=== PATIENT | male | born 1985 | race African-American/Black ===

== ENCOUNTER 2020-12-11 12:33 | Inpatient (IN) | payer OTHER ==
[2020-12-11] MEDS ORDERED: CEFAZOLIN 1 GM VIAL ONE (12:45)
[2020-12-11] MEDS ORDERED: Morphine 4 MG/ML VIAL ONE (12:45)
[2020-12-11] MEDS ORDERED: TETANUS AND DIPHTHERIA TOX/PF 0.5 ML DISP.SYRIN ONE (12:45)
[2020-12-11] MEDS ORDERED: Ketamine 50 MG/ML (10ML VIAL) ONE (12:46)
[2020-12-11] MEDS ORDERED: Dextrose 50% Abboject 50 ML SYRINGE SLOW IVP PRN (13:05)
[2020-12-11] MEDS ORDERED: Dextrose 5% in Water 1,000 ML IV PRN (13:05)
[2020-12-11] MEDS ORDERED: Ondansetron PF 4 MG/2 ML Vial IVP PRN (13:05)
[2020-12-11] MEDS ORDERED: hydrALAZINE 20 MG/ML VIAL SLOW IVP PRN (13:05)
[2020-12-11] MEDS ORDERED: Morphine 4 MG/ML VIAL SLOW IVP PRN (13:05)
[2020-12-11] MEDS ORDERED: Fentanyl 250 MCG/5 ML VIAL ONE (13:06)
[2020-12-11] MEDS ORDERED: Midazolam HCl 2 mg/2 ml Vial ONE (13:06)
[2020-12-11] MEDS ORDERED: Cyclobenzaprine 10 MG TAB PO PRN (13:08)
[2020-12-11 13:17] LABS: Lactic Acid 1.8 mmol/L (0.5-2.2)
[2020-12-11 13:18] LABS: #Basophils 0.1 thou/uL (0.0-0.2); #Lymphocytes 4.1 thou/uL (1.20-3.40); #Monocytes 1.2 thou/uL (0.11-0.59); #Neutrophils 12.3 thou/uL (1.40-6.50); %Basophils 0.6 % (0.0-1.0); %Eosinophils 0.2 % (0.0-10.0); %Lymphocytes 23.1 % (21.0-51.0); %Monocytes 6.8 % (0.0-10.0); %Neutrophils 69.2 % (42.0-75.0); Mean Corpuscular HGB CONC 33.1 g/dL (32.0-36.0); Mean Corpuscular Hemoglobin 29.3 pg (27.0-31.0); Mean Corpuscular Volume 88.4 fL (78.0-98.0); Platelet Count 236 thou/uL (130-400); RBC Distribution Width 13.1 % (11.5-14.5); Red Blood Cell (RBC) Count 5.13 mill/uL (4.70-6.10); White Blood Cell (WBC) Count 17.8 thou/uL (4.8-10.8)
[2020-12-11 13:22] LABS: Prothrombin Time 13.4 sec (12.0-14.7)
[2020-12-11 13:23] LABS: ALT (SGPT) 21 U/L (8-55); AST (SGOT) 41 U/L (5-34); Albumin 4.1 g/dL (3.5-5.0); Alcohol Less than 10 mg/dL (Less than 10); Alkaline Phosphatase 86 U/L (40-110); Anion Gap 13 mmol/L (10-20); BUN (Urea Nitrogen) 11 mg/dL (8.9-20.6); Bilirubin, Total 0.8 mg/dL (0.2-1.2); CK (CPK) 2103 U/L (30-200); Calc. Creatinine Clearance 0 mL/min (70-130); Calcium 9.2 mg/dL (7.8-10.44); Carbon Dioxide 22 mmol/L (22-29); Chloride 104 mmol/L (98-107); Globulin 3.9 g/dL (2.4-3.5); Glucose 140 mg/dL (70-105); Magnesium 1.9 mg/dL (1.6-2.6); Potassium 3.4 mmol/L (3.5-5.1); Sodium 136 mmol/L (136-145)
[2020-12-11 13:28] LABS: Phosphorus 1.6 mg/dL (2.3-4.7)
[2020-12-11] MEDS ORDERED: Protamine Sulfate 50 MG/5 ML VIAL ONE (13:28)
[2020-12-11] MEDS ORDERED: Heparin 5,000 UNITS/ML VIAL ONE (13:28)
[2020-12-11] MEDS ORDERED: Magnesium 2 GM/50 ML 2 GM in Premix Bag 1 BAG IVPB SCH (13:45)
[2020-12-11] MEDS ORDERED: Potassium Phosphate 30 MMOL in Sodium Chloride 0.9% 250 ML 250 ML IVPB SCH (13:45)
[2020-12-11] MEDS ORDERED: PROPOFOL 200 MG/20 ML VIAL ONE (13:51)
[2020-12-11] MEDS ORDERED: Rocuronium Bromide 10 MG/ML (10ML VIAL) ONE (13:51)
[2020-12-11] MEDS ORDERED: Lidocaine 1% PF 5 ML VIAL ONE (13:51)
[2020-12-11] MEDS ORDERED: Ondansetron PF 4 MG/2 ML Vial ONE (13:51)
[2020-12-11] MEDS ORDERED: Dexamethasone 20 MG/5 ML VIAL ONE (13:51)
[2020-12-11] MEDS ORDERED: Glycopyrrolate 0.2 MG/ML 5 ML SYRINGE ONE (13:51)
[2020-12-11] MEDS ORDERED: Succinylcholine 200 MG/10 ml SYRINGE FS ONE (13:51)
[2020-12-11] MEDS ORDERED: Ketorolac Tromethamine 30 MG/ML VIAL IVP PRN (15:01)
[2020-12-11] MEDS ORDERED: Ondansetron HCl/PF 4 MG/2 ML Vial IVP PRN (15:01)
[2020-12-11] MEDS ORDERED: Promethazine HCl 25 MG/ML VIAL IM PRN (15:01)
[2020-12-11] MEDS ORDERED: Promethazine HCl 25 MG/ML VIAL IVPB PRN (15:01)
[2020-12-11] MEDS ORDERED: HYDROmorphone 2 MG/ML VIAL SLOW IVP PRN (15:01)
[2020-12-11] MEDS ORDERED: SUGAMMADEX SODIUM 200 MG/2 ML VIAL ONE (15:53)
[2020-12-11] MEDS ORDERED: Fentanyl 100 MCG/2 ML VIAL ONE ×2 (16:13→16:35)
[2020-12-11] MEDS: Sodium Chloride 0.9% 1,000 ML IV SCH (17:41)
[2020-12-11] MEDS: Acetaminophen 500 MG TAB PO SCH ×2 (18:41→20:58)
[2020-12-11] MEDS: traMADol HCl 50 MG TAB PO SCH ×2 (18:42→20:58)
[2020-12-11] MEDS: Gabapentin 300 MG CAP PO SCH ×2 (18:42→20:58)
[2020-12-11] MEDS: Senokot S 8.6-50 MG TAB PO SCH (20:57)
[2020-12-11] MEDS: Famotidine 20 MG TAB PO SCH (20:58)
[2020-12-11 22:10] LABS: Amphetamine Detected (NotDetected); Barbiturates Screen Not Detected (NotDetected); Benzodiazepine Screen Not Detected (NotDetected); Cocaine Metabolite Screen Detected (NotDetected); Methadone Not Detected (NotDetected); Methamphetamine Detected (NotDetected); Opiate Screen Detected (NotDetected); Oxycodone Screen Not Detected (NotDetected); Phencyclidine (PCP) Not Detected (NotDetected); THC/Cannabinoid Screen Detected (NotDetected); Tricyclic Screen Not Detected (NotDetected)
[2020-12-11 22:56] VITALS: BMI 25.2
[2020-12-12] MEDS: traMADol HCl 50 MG TAB PO SCH ×4 (01:55→18:21)
[2020-12-12] MEDS: Acetaminophen 500 MG TAB PO SCH ×4 (01:55→18:21)
[2020-12-12] MEDS: Sodium Chloride 0.9% 1,000 ML IV SCH ×4 (02:00→23:53)
[2020-12-12 04:38] LABS: #Basophils 0.1 thou/uL (0.0-0.2); #Lymphocytes 3.2 thou/uL (1.20-3.40); #Monocytes 1.3 thou/uL (0.11-0.59); #Neutrophils 9.3 thou/uL (1.40-6.50); %Basophils 0.4 % (0.0-1.0); %Eosinophils 0.1 % (0.0-10.0); %Monocytes 9.5 % (0.0-10.0); Hemoglobin 12.5 g/dL (14.0-18.0); Mean Corpuscular HGB CONC 33.1 g/dL (32.0-36.0); Mean Corpuscular Hemoglobin 29.5 pg (27.0-31.0); Mean Corpuscular Volume 89.1 fL (78.0-98.0); Mean Platelet Volume 8.6 fL (7.4-10.4); Platelet Count 193 thou/uL (130-400); RBC Distribution Width 12.9 % (11.5-14.5); Red Blood Cell (RBC) Count 4.23 mill/uL (4.70-6.10); White Blood Cell (WBC) Count 13.8 thou/uL (4.8-10.8)
[2020-12-12 05:01] LABS: Lactic Acid 0.6 mmol/L (0.5-2.2)
[2020-12-12 05:06] LABS: Anion Gap 13 mmol/L (10-20); BUN (Urea Nitrogen) 8 mg/dL (8.9-20.6); Calc. Creatinine Clearance 126 mL/min (70-130); Calcium 8.3 mg/dL (7.8-10.44); Carbon Dioxide 23 mmol/L (22-29); Chloride 104 mmol/L (98-107); Glucose 93 mg/dL (70-105); Magnesium 2.2 mg/dL (1.6-2.6); Potassium 4.8 mmol/L (3.5-5.1); Sodium 135 mmol/L (136-145)
[2020-12-12] MEDS: Famotidine 20 MG TAB PO SCH ×2 (08:20→20:44)
[2020-12-12] MEDS: Gabapentin 300 MG CAP PO SCH ×3 (08:21→20:44)
[2020-12-12] MEDS: Senokot S 8.6-50 MG TAB PO SCH ×2 (08:23→20:44)
[2020-12-12] MEDS: Polyethylene Glycol 3350 17 GM Packet PO SCH (08:24)
[2020-12-12] MEDS ORDERED: ceFAZolin Sodium/D5W 2 GM in Premix Bag 1 BAG IVPB SCH (10:00)
[2020-12-12] MEDS: CEFAZOLIN 2 GM, Admixture Fee 1 EACH in Sodium Chloride 0.9% 100 ML IVPB SCH ×2 (10:39→18:21)
[2020-12-12] MEDS ORDERED: Ketorolac Tromethamine 30 MG/ML VIAL IVP SCH (11:30)
[2020-12-12 11:53] LABS: SARS-CoV-2 PCR by NAA Not Detected (NotDetected)
[2020-12-12] MEDS: Ferrous Sulfate 325 MG TAB PO SCH (17:29)
[2020-12-12] MEDS: Ibuprofen 200 MG TAB PO SCH (20:45)
[2020-12-12] MEDS: Ascorbic Acid 500 mg Chewable Tablet PO SCH (20:45)
[2020-12-13] MEDS: traMADol HCl 50 MG TAB PO SCH ×4 (00:34→18:19)
[2020-12-13] MEDS: Acetaminophen 500 MG TAB PO SCH ×4 (00:34→18:19)
[2020-12-13] MEDS: CEFAZOLIN 2 GM, Admixture Fee 1 EACH in Sodium Chloride 0.9% 100 ML IVPB SCH (03:27)
[2020-12-13] MEDS: Sodium Chloride 0.9% 1,000 ML IV SCH (05:55)
[2020-12-13 06:01] LABS: Hemoglobin 11.6 g/dL (14.0-18.0)
[2020-12-13] MEDS: Ibuprofen 200 MG TAB PO SCH ×3 (06:21→20:47)
[2020-12-13] MEDS ORDERED: Fentanyl 100 MCG/2 ML VIAL SLOW IVP PRN (08:54)
[2020-12-13] MEDS ORDERED: LIDOCAINE 4% Topical Sol 4 ML SOLN.PK.G. TP SCH (09:00)
[2020-12-13] MEDS: Gabapentin 300 MG CAP PO SCH ×3 (09:15→20:48)
[2020-12-13] MEDS: Ferrous Sulfate 325 MG TAB PO SCH ×2 (09:15→18:18)
[2020-12-13] MEDS: Ascorbic Acid 500 mg Chewable Tablet PO SCH ×2 (09:15→20:48)
[2020-12-13] MEDS: Polyethylene Glycol 3350 17 GM Packet PO SCH (09:16)
[2020-12-13] MEDS: Senokot S 8.6-50 MG TAB PO SCH ×2 (09:16→20:48)
[2020-12-14] MEDS: Acetaminophen 500 MG TAB PO SCH ×3 (01:02→12:33)
[2020-12-14] MEDS: traMADol HCl 50 MG TAB PO SCH ×3 (01:02→12:33)
[2020-12-14] MEDS: Ibuprofen 200 MG TAB PO SCH (04:42)
[2020-12-14] MEDS ORDERED: Fentanyl 100 MCG/2 ML VIAL SLOW IVP PRN (08:44)
[2020-12-14] MEDS ORDERED: Lidocaine 4% Topical Sol 50 ML BOT TOP SCH (09:00)
[2020-12-14] MEDS: Senokot S 8.6-50 MG TAB PO SCH (09:19)
[2020-12-14] MEDS: Ascorbic Acid 500 mg Chewable Tablet PO SCH (09:19)
[2020-12-14] MEDS: Polyethylene Glycol 3350 17 GM Packet PO SCH (09:20)
[2020-12-14] MEDS: Gabapentin 300 MG CAP PO SCH (09:20)
[2020-12-14] MEDS: Ferrous Sulfate 325 MG TAB PO SCH (09:20)
[2020-12-14] MEDS ORDERED: Cephalexin 250 MG CAP PO SCH (12:00)
[2020-12-14 12:16] VITALS: BP 132/81; TEMP 97.4
== END 2020-12-14 14:45 | disposition home or self-care (01) | DRG 908 ==
LOC: ERS 12:33 → SURG A 13:05 → SURG B 19:52
PROVIDERS: ADMIT Specialist; ATTEND Surgery
PROC: 0RSMXZZ Reposition Left Elbow Joint, External Approach (ICD-10-PCS; principal; 2020-12-11)
PROC: 0KBB0ZZ Excision of Left Lower Arm and Wrist Muscle, Open Approach (ICD-10-PCS; 2020-12-11)
DX: S51.022A Laceration with foreign body of left elbow, initial encounter (principal); D62 Acute posthemorrhagic anemia; S53.105A Unspecified dislocation of left ulnohumeral joint, initial encounter; Z20.822 Contact with and (suspected) exposure to COVID-19; Z23 Encounter for immunization; F17.210 Nicotine dependence, cigarettes, uncomplicated; V47.5XXA Car driver injured in collision with fixed or stationary object in traffic accident, initial encounter; Y92.410 Unspecified street and highway as the place of occurrence of the external cause
CPT/HCPCS: 36415; 71045; 76000; 80048; 80053; 80306; 80307; 82550; 83605; 83735; 84100; 85014; 85018; 85025; 85610; 85730; 90471; 90714; 93005; 96365; 96375; 99152; G0390; J0690; J1100; J1644; J1885; J2250; J2270; J2405; J2704; J2720; J3010; J3475; J3490; J7050; U0003; U0005